=== PATIENT | female | born 1995 ===

== ENCOUNTER 2020-03-16 14:15 | Inpatient (IN) | payer OTHER ==
[~2020-03-16] VITALS: Ht 165.1 cm; Wt 64.9 kg
[2020-03-19] MEDS ORDERED: PRENATAL CAPLE1 EAC1 PO (06:47)
[2020-03-19] MEDS ORDERED: FOLIC ACID20 MG PO (06:47)
[2020-03-19] MEDS ORDERED: IRON325 MG PO (06:48)
== END 2020-03-21 11:49 | disposition home or self-care (01) | DRG 807 ==
LOC: LDR 03-19 06:05 → OB/GYN 03-19 13:33
PROVIDERS: ADMIT Specialist; ATTEND Specialist
PROC: 10E0XZZ Delivery of Products of Conception, External Approach (ICD-10-PCS; principal; 2020-03-19)
PROC: 0HQ9XZZ Repair Perineum Skin, External Approach (ICD-10-PCS; 2020-03-19)
PROC: 10907ZC Drainage of Amniotic Fluid, Therapeutic from Products of Conception, Via Natural or Artificial Opening (ICD-10-PCS; 2020-03-19)
PROC: 3E033VJ Introduction of Other Hormone into Peripheral Vein, Percutaneous Approach (ICD-10-PCS; 2020-03-19)
PROC: 3E0P7VZ Introduction of Hormone into Female Reproductive, Via Natural or Artificial Opening (ICD-10-PCS; 2020-03-19)
PROC: 4A1HXFZ Monitoring of Products of Conception, Cardiac Rhythm, External Approach (ICD-10-PCS; 2020-03-19)
DX: O70.0 First degree perineal laceration during delivery (principal); Z37.0 Single live birth; O90.81 Anemia of the puerperium; D64.9 Anemia, unspecified; Z3A.39 39 weeks gestation of pregnancy; Z20.822 Contact with and (suspected) exposure to COVID-19